=== PATIENT | female | born 1980 | race Caucasian/White ===

== ENCOUNTER 2017-03-23 18:18 | Emergency (ER) | payer OTHER ==
[~2017-03-23] VITALS: Ht 170.2 cm; Wt 56.5 kg
[2017-03-23 19:31] LABS: ADD MIUA? NO; BILIRUBIN NEGATIVE; BLOOD NEGATIVE; COLOR YELLOW ((YELLOW)); GLUCOSE (STRIP) NEGATIVE; KETONES NEGATIVE; LEUKOCYTES NEGATIVE; NITRITE NEGATIVE; PROTEIN (STRIP) NEGATIVE; SPECIFIC GRAVITY 1.014 (1.000-1.030); UCUL ADDED? NO; UROBILINOGEN 0.2 MG/DL (0.2-1.0)
[2017-03-23 19:59] LABS: HEMATOCRIT 42.6 % (36.0-46.0); MCHC 32.6 G/DL (30.0-36.0); MEAN PLAT.VOLUME 11.4 uM^3 (9.5-12.4); PLATELET COUNT 209 K/uL (156-360); RBC DIS.WIDTH-CV 12.4 % (11.8-14.6); RBC DIS.WIDTH-SD 41.5 % (39-53); RED BLOOD COUNT 4.63 M/uL (3.80-5.20); WHITE BLOOD COUNT 9.5 K/uL (4.1-10.2)
[2017-03-23 20:06] LABS: CHLORIDE 105 mEq/L (99-109); POTASSIUM 4.2 mEq/L (3.7-5.4); SODIUM 138 mEq/L (136-147)
[2017-03-23 20:09] LABS: GLUCOSE 90 mg/dL (70-99)
[2017-03-23 20:10] LABS: ANION GAP 6 MEQ/L (2-14); TOTAL BILIRUBIN 0.3 mg/dL (0.0-1.0)
[2017-03-23 20:12] LABS: ALKALINE PHOSPHATASE 72 IU/L (3-129); GFR ESTIMATE (CALCULATED) > 59 mL/min/
[2017-03-23 20:13] LABS: UREA NITROGEN (BUN) 10 mg/dL (9-23)
[2017-03-23 20:24] LABS: QUANTITATIVE HCG < 4.0 MIU/ML
[2017-03-23 21:09] LABS: LIPASE 51 U/L (1.0-51.0)
[2017-03-23] MEDS ORDERED: ZOFRAN ODT4 MG PO (23:36)
[2017-03-23] MEDS ORDERED: BENTYL20 MG PO (23:36)
[2017-03-23] MEDS ORDERED: MOTRIN800 MG PO (23:36)
[2017-03-23 23:49] VITALS: BP 115/77
== END 2017-03-23 23:51 | disposition home or self-care (01) ==
LOC: EME 18:18
DX: R10.13 Epigastric pain (principal); M54.9 Dorsalgia, unspecified; R11.0 Nausea
CPT/HCPCS: 74177; 80053; 81003; 83690; 84702; 85027; 99281; 99284; J1885; J7030